=== PATIENT | male | born 1980 | race African-American/Black ===

== ENCOUNTER 2016-07-18 11:54 | Emergency (ER) | payer OTHER ==
[~2016-07-18] VITALS: Ht 188 cm; Wt 92.5 kg
[2016-07-18 13:01] LABS: EOSINOPHIL (%) 3.5 % (0-5); EOSINOPHIL COUNT 0.4 K/uL (0-0.3); HEMATOCRIT 44.2 % (38.0-50.0); IMMATURE GRANULOCYTE (%) 0.8 % (0.0-0.7); IMMATURE GRANULOCYTE COUNT 0.1 K/uL; INSTRUMENT ABS NEUTROPHIL CT 7.2 K/uL; LYMPHOCYTE COUNT 2.1 K/uL (1.0-2.8); MCH 30.9 PG (29.0-34.0); MCHC 33.3 G/DL (30.0-36.0); MCV 92.9 FL (86-99); MEAN PLAT.VOLUME 11.2 uM^3 (9.0-12.4); MONOCYTE (%) 7.3 % (3-12); MONOCYTE COUNT 0.8 K/uL (0-0.8); NEUTROPHIL (%) 67.8 % (45-76); NEUTROPHIL COUNT 7.2 K/uL (1.8-6.4); PLATELET COUNT 261 K/uL (156-360); RBC DIS.WIDTH-CV 12.2 % (11.8-14.6); RBC DIS.WIDTH-SD 42.4 % (39-53); RED BLOOD COUNT 4.76 M/uL (4.00-5.50); WHITE BLOOD COUNT 10.6 K/uL (4.1-10.2)
[2016-07-18 13:37] LABS: CHLORIDE 106 mEq/L (99-109); POTASSIUM 4.7 mEq/L (3.7-5.4); SODIUM 140 mEq/L (136-147)
[2016-07-18 13:39] LABS: GLUCOSE 92 mg/dL (70-99)
[2016-07-18 13:40] LABS: ANION GAP 7 MEQ/L (2-14)
[2016-07-18 13:41] LABS: TOTAL BILIRUBIN 0.6 mg/dL (0.0-1.0)
[2016-07-18 13:43] LABS: ALKALINE PHOSPHATASE 65 IU/L (3-129); GFR ESTIMATE (CALCULATED) > 59 mL/min/
[2016-07-18 13:44] LABS: UREA NITROGEN (BUN) 15 mg/dL (9-23)
[2016-07-18 14:55] VITALS: BP 131/83
== END 2016-07-18 14:57 | disposition home or self-care (01) ==
LOC: EME 11:54
PROVIDERS: Emergency Medicine
DX: M71.22 Synovial cyst of popliteal space [Baker], left knee (principal); J45.909 Unspecified asthma, uncomplicated
CPT/HCPCS: 80053; 85025; 93971; 99281; 99284